=== PATIENT | female | born 1995 | race Two or more races ===

== ENCOUNTER 2025-03-01 18:34 | Emergency (ER) | payer MEDICAID, OTHER ==
[~2025-03-01] VITALS: Ht 154.9 cm; Wt 63.6 kg
--- NOTE | 2025-03-01 19:31 | ED.PDOC ---
Back pain HPI HPI Comments HPI: 29 year old female presents to the ED with a chief compliant of back pain onset 1 week. Patient has been experiencing low back pain for the past week, went to [facility], was carrying her 3 year old all day, weighs about 30 lbs. Since then patient has been experiencing low back pain, has gotten 2 massages, slight im provement of symptoms but has not been resolved, has not taken pain medication. Patient denies possibility of . Denies fever, chills, fall, injury, trauma, nausea, vomiting, headache, chest pain, dizziness, numbness/tingling. No other symptoms or modifying factors present at this time. Initial Vitals BP: 119/81 HR: 71 RR: 16 O2: 99% Temp: 97.9 F Past Medical History: Denies Past Surgical History: Denies Social History: Denies ETOH, smoking, and drug use. Medications:Denies Allergies: NKDA KIM: BACK PAIN HPI: Poor Historian. Past Medical History: Past Surgical History: REVIEW OF SYSTEMS: CONSTITUTIONAL: Denies acute: fever, diaphoresis, chills, generalized weakness. HEAD: Denies acute: headache, photophobia Eyes: Denies acute: Double vision, vision loss, eye pain, eye discharge. EARS: Denies acute: tinnitus, hearing loss, ear discharge, ear pain, THROAT: Denies acute: sore throat, swelling, difficulty swallowing , pain with swallowing, change in voice. NECK: Denies acute: neck pain, neck swelling, stiff neck. HEART: Denies acute : chest pain, palpitations, LUNGS: Denies acute: SOB, wheezing, cough, hemoptysis ABDOMEN: Denies acute: abdominal pain, Nausea, Vomiting, diarrhea, melena , hematemesis, hematochezia SKIN: Denies acute: rash, redness, lesions, itchiness. EXTREMITIES: Denies acute: calf pain, numbness, tingling, weakness, denies pain in extremity. Neuro: Denies acute: focal neurological deficit, motor or sensory focal neurological deficit, tremors, seizure like activity, confusion, dizziness, change in mental status, loss of bowel or bladder function, cauda equina like symptoms. : Denies acute: dysuria, hematuria, flank pain, increase in urinary frequency. PSYCH: Denies acute: hallucination, suicidal ideation, homicidal ideation. FEMALE: Denies acute: abnormal vaginal bleeding, foul odor, unusual discharge. PHYSICAL EXAM: General: ----my----acute distress, awake and alert. Head: normocephalic, atraumatic. Neck: supple, trachea is midline, no swelling. Throat: Normal phonation. Eyes:, no erythema, no purulent discharge, no proptosis, no icterus. Heart: regular rate, regular rhythm, no significant murmur appreciated. Lungs: no apparent respiratory distress, Able to speak in full sentences. No wheezing, no rhonchi, no crackles. No stridors Clear to auscultation bilaterally. Abdomen: non tender to palpation, non distended, soft, no guarding, no rebound, + bowel sounds. Neuro: Awake, Alert, oriented to name, self, situation, follows commands GCS=15. Speech is normal. Skin: no petechia, no purpura, no cyanosis, non-pale, not jaundice. Lower extremities: --no - Pitting edema no deformity, no focal swelling, no calf TTP. Makes eye contact. moves all four extremities. Evaluation of the lumbosacral area where patient has pain. No appreciated swelling or focal tenderness to palpation or step-off. Patient has a belt like distribution of the lumbosacral region of soreness extending up to her lower thoracic region as well. Face: no apparent facial droop. No CVA tenderness to percussion bilaterally Ambulating in the ED independently. ED COURSE: DISCLAIMER: This medical document was created using an electronic medical record system with voice recognition software and computerized dictation system. Although this document has been carefully reviewed, there might still be some phonetic and typographical errors. Occasional wrong-word or "sound-alike" substitutions may have occurred due to the inherent limitations of voice recognition software. These areas are purely typographical due to imperfections of the software programs and do not reflect any compromise in the patient's medical care. Please read the chart carefully and recognize, using context, where these substitutions have occurred. Chief Complaint: Back Pain Time Seen by MD: 19:05 Reviewed Notes: Medications, Allergies Allergies: Coded Allergies: NO KNOWN ALLERGIES (Unverified , 03/01/25) Information Source: Patient Mode of Arrival: Ambulatory Timing: Weeks Duration: Since onset Location of Back pain: (B) Lower back Severity: Moderate Prehospital treatment: None Past Medical History PAST MEDICAL HISTORY: Denies Surgical History: Denies all surgeries EHS MANAGER History: No Pertinent EHS MANAGER History Family History Family History: Reviewed,noncontributory to illness, No family hx of Cancer, No family hx of DM, No family hx of Heart vish, No family hx of HTN, No family hx ofKidney vish, No family hx of Liver vish, No family hx of Lung vish, No family hx of Stroke Social History Smoker: Non-Smoker Alcohol: Denies ETOH Use Drugs: Denies Drug Use Lives In: Home Was a procedure done? Was a procedure done?: No X-Ray, Labs, Meds, VS Vital Signs Date Time Temp Pulse Resp B/P (MAP) Pulse Ox O2 Delivery O2 Flow Rate FiO2 03/01/25 21:57 98.2 72 18 124/67 (86) 99 98.2 03/01/25 18:36 97.9 71 16 119/81 99 97.9 Lab Test 03/01/25 22:30 Range/Units Urine Color Light-yellow Yellow Urine Clarity Clear Clear Urine pH 6.0 5.0-9.0 Urine Specific Hope 1.009 1.001-1.035 Urine Protein Negative Negative Urine Ketones Negative Negative Urine Blood 1+ H Negative /uL Urine Nitrite Negative Negative Urine Bilirubin Negative Negative Urine Urobilinogen Normal Negative mg/dL Urine Leukocyte Esterase Negative Negative /uL Urine Glucose Normal Normal mg/dL Current Medications Medications (Trade) Dose Ordered Sig/Dinorah Route Start Time Stop Time Status Last Admin Dexamethasone Sodium Phosphate (Decadron Injection) 10 mg ONCE ONCE IM 03/01/25 19:30 03/01/25 19:31 DC 03/01/25 22:04 Ketorolac Tromethamine (Toradol Injection) 30 mg ONCE ONCE IM 03/01/25 19:30 03/01/25 19:31 DC 03/01/25 22:04 Acetaminophen/ Hydrocodone Bitart ([place] 5/325MG Tab) 1 tab ONCE ONCE PO 03/01/25 19:30 03/01/25 19:31 DC 03/01/25 22:05 Time of 1ST Reevaluation: 19:35 Time of 2ND Reevaluation: 23:26 (Urinalysis still pending) Departure 1 Departure Time of Disposition: 00:31 Impression: Primary Impression: Lumbar sprain Additional Impression: Musculoskeletal pain Disposition: HOME / SELF CARE / HOMELESS Condition: Stable Additional Instructions: Additional instructions: Please read all instructions provided in this packet carefully. You MUST follow-up with your primary care/family doctor in 1 to 2 days. If you are unable to see your primary care/family doctor, please return to our emergency room for re-assessment and re-evaluation in 1 to 2 days. Return to the emergency room here in our facility or to the nearest ER [facility] if your symptoms change or worsen. CONSULTATIONS: you MUST Follow-up for consultation as soon as possible with: ---- You MUST call the consultants office yourself to make an appointment. You may need to arrange that through your insurance and/or your primary/family doctor. If you are unable to see the net developer consultant in 1 to 2 days, you must return to our emergency room (or any other ER of your choice) for re-assessment and re- evaluation. Adequate fluid hydration. Although you have been discharged from the Emergency Department, this does not mean that you have a "clean bill of health". No definitive diagnosis for your symptoms has been made today. It is possible that you are in the process of developing a serious illness. This is why you must return to the ED without fail if any new or worsening symptoms develop. No heavy lifting. Use ibuprofen and Tylenol for pain control. Discharged With: Self Critical Care Note Critical Care Time?: No I personally scribed for MARKO TUBBS DO ([email or web address]) on 03/01/25 at 19:31. Electronically submitted by Gris Mcleod ([email or web address]). MARKO TUBBS DO Mar 01, 2025 19:31
[2025-03-01 21:57] VITALS: BP 124/67; RESP 18; TEMP 98.2; O2SAT 99
[2025-03-01] MEDS: KETOROLAC TROMETH 60MG/2ML VIAL IM ONE (22:04)
[2025-03-01] MEDS: HYDROcodone-ACET 5/325MG TAB PO ONE (22:05)
[2025-03-01 23:31] LABS: Urine Protein, UAD Negative (Negative)
[2025-03-02 01:06] VITALS: PULSE 75
== END 2025-03-02 01:06 | disposition home or self-care (01) ==
LOC: ER 18:34
DX: S33.5XXA Sprain of ligaments of lumbar spine, initial encounter (principal); M79.18 Myalgia, other site; Z79.899 Other long term (current) drug therapy; X58.XXXA Exposure to other specified factors, initial encounter; Y93.89 Activity, other specified; Y92.89 Other specified places as the place of occurrence of the external cause; Y99.8 Other external cause status
CPT/HCPCS: 81003; 96372; 99284; J1100; J1885